=== PATIENT | male | born 1960 | race Caucasian/White ===

== ENCOUNTER → 2016-04-15 | Outpatient (REF) | payer OTHER, BC | LOC: M LAB REF 12:19 | PROVIDERS: ATTEND Otolaryngology | DX: D48.5 Neoplasm of uncertain behavior of skin (principal) ==

== ENCOUNTER 2016-04-26 07:12 | Day surgery (SDC) | payer BC ==
[~2016-04-26] VITALS: Ht 172.7 cm; Wt 88.5 kg
[~2016-04-26 07:12] MED LIST: ALEV220C2 PO
[2016-04-26] MEDS ORDERED: BACITRACIN OINT 30GM As Ordered ONE (09:33)
[2016-04-26] MEDS ORDERED: LIDOCAINE W/EPINEPHRINE 1% 20ML VIAL As Ordered ONE (09:33)
[2016-04-26] MEDS ORDERED: fentaNYL 250 MCG/5 ML INJECTION (J3010) As Ordered ONE (10:23)
[2016-04-26] MEDS ORDERED: MIDAZOLAM INJ 2 MG/2 ML VIAL (J2250) As Ordered ONE (10:24)
[2016-04-26] MEDS ORDERED: SUCCINYLCHOLINE 100 MG/5 ML SYRINGE (J0330) As Ordered ONE (10:24)
[2016-04-26] MEDS ORDERED: LIDOCAINE 2% INJ 100 MG/5 ML SDV (FOR ANES.) As Ordered ONE (10:24)
[2016-04-26] MEDS ORDERED: PROPOFOL 200 MG/20 ML VIAL As Ordered ONE (10:24)
[2016-04-26] MEDS ORDERED: ROCURONIUM BROMIDE 50 MG/5 ML VIAL As Ordered ONE (10:26)
[2016-04-26] MEDS ORDERED: METHYLENE BLUE 1% 10 ML VIAL (Q9968) As Ordered ONE (10:50)
[2016-04-26] MEDS ORDERED: CIPRODEX OTIC SUSP 7.5ML As Ordered ONE (10:50)
[2016-04-26] MEDS ORDERED: EPINEPHrine 1MG/ML INJ 30ML MD-VIAL As Ordered ONE (10:50)
[2016-04-26] MEDS ORDERED: ePHEDrine SULFATE 25 MG/5 ML(5MG/ML) SYRINGE As Ordered ONE ×2 (11:13→14:45)
[2016-04-26] MEDS ORDERED: LIDOCAINE W/EPINEPHRINE 1% 20ML VIAL SC ONE (11:36)
[2016-04-26] MEDS ORDERED: HYDROmorphone HCL 2 MG/ML 1ML VIAL (J1170) As Ordered ONE (11:57)
[2016-04-26] MEDS ORDERED: hydrALAZINE INJ 20 MG/ML VIAL As Ordered ONE (13:20)
[2016-04-26] MEDS: CIPRODEX OTIC SUSP 7.5ML AU ONE ×2 (13:41→13:43)
[2016-04-26] MEDS ORDERED: CIPRODEX OTIC SUSP 7.5ML AD ONE (14:23)
[2016-04-26] MEDS ORDERED: REMIFENTANIL 1MG 3ML VIAL As Ordered ONE (14:48)
[2016-04-26] MEDS ORDERED: PHENYLephrine HCL 500 MCG/5 ML (100MCG/ML) SYRINGE (J2370) As Ordered ONE (14:59)
[2016-04-26] MEDS ORDERED: ONDANSETRON 4MG/2ML VIAL (J2405) As Ordered ONE (15:03)
[2016-04-26] MEDS ORDERED: dexameTHASONE 4 MG/ML 1ML VIAL (J1100) As Ordered ONE (15:03)
[2016-04-26] MEDS ORDERED: BACITRACIN OINT 30GM TOP ONE (15:19)
[2016-04-26] MEDS ORDERED: LR 1,000 ML IV SCH ×2 (16:15→16:30)
[2016-04-26] MEDS ORDERED: MORPHINE 2 MG/ML 1ML SYRINGE IV PRN (16:15)
[2016-04-26] MEDS ORDERED: METOCLOPRAMIDE INJ 10MG/2ML VIAL (J2765) IV PRN (16:15)
[2016-04-26] MEDS ORDERED: ONDANSETRON 4MG/2ML VIAL (J2405) IV PRN (16:15)
[2016-04-26] MEDS ORDERED: PERCOCET 5MG/325MG TAB As Ordered ONE ×2 (16:34→16:49)
[2016-04-26] MEDS ORDERED: MORPHINE 10 MG/ML 1ML VIAL As Ordered ONE (16:34)
[2016-04-26] MEDS: PERCOCET 5MG/325MG TAB PO PRN ×2 (16:37→16:57)
[2016-04-26] MEDS: MORPHINE 2 MG/ML 1ML SYRINGE IV PRN ×5 (16:39→17:00)
[2016-04-26] MEDS ORDERED: fentaNYL 100 MCG/2 ML INJECTION (J3010) As Ordered ONE (17:39)
[2016-04-26] MEDS: fentaNYL 100 MCG/2 ML INJECTION (J3010) IV PRN ×4 (17:40→18:05)
[2016-04-26 20:24] VITALS: BP 124/69
[2016-04-26] MEDS: MORPHINE 10 MG/ML 1ML VIAL IV PRN (20:47)
[2016-04-26 21:23] VITALS: BP 127/60
--- NOTE | 2016-04-26 22:13 | ECGEPIP ---
Stationary ECG Study [facility] Test Date: 2016-04-26 Pat Name: JENNA AKERS Department: Room: - Gender: M [employer]: : 1960 Requested By: Rafa Munguia Order Number: [id number] Reading MD: Joshua Nicole Measurements Intervals [place] Rate: 56 P: 35 IA: 182 QRS: 12 QRSD: 101 T: 31 QT: 380 QTc: 369 Interpretive Statements Sinus bradycardia ST elevation in first complex in V2--may be artifactual--with nonspecific ST-T wave abnormalities elsewhere Comparison tracing not on file Electronically Signed On 04-26-2016 22:13:36 EST by Joshua Nicole
[2016-04-26 22:25] VITALS: BP 116/71
[2016-04-26 23:30] VITALS: BP 153/77
[2016-04-27] VITALS (10 sets, daily range): BP systolic 108–125; BP diastolic 61–68; O2SAT 91–96
[2016-04-27] MEDS: MORPHINE 10 MG/ML 1ML VIAL IV PRN ×4 (00:57→13:58)
[2016-04-27] MEDS: ACETAMINOPH W/CODEINE #3 TAB UD PO PRN ×3 (03:06→12:26)
--- NOTE | 2016-04-27 06:06 | RO ---
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 PROCEDURE: Excision skin cancer right ear by total external ear removal and right parotidectomy and right supraomohyoid neck dissection and right cervical facial flap. SURGEON: Dr. Faraz Das. BIBLICAL LANGUAGES PROFESSOR: Dr. Hodges and Hector Fisher. ANESTHESIA: ESTIMATED BLOOD LOSS: FINDINGS: There is skin cancer involving the upper part of the ear extending into the ear canal. I resected the tumor with the ear and the defect measured 6 x 8 cm. Cervical facial flap was elevated which was 12 x 20 cm going from the facial region down to the clavicle from the posterior aspect all the way just over the midline. So the total elevated cervical facial flap was 240 cm2. Patient was intubated. A nerve monitor device was used during the procedure. The incisions were mapped out. I started first by making an incision in the inferior part of the ear down into the neck. Once this was done, then I dissected the tissues off of the face and onto the neck anteriorly. Once that was done, then I controlled bleeding with cautery. I used Harmonic scalpel during the procedure. I used bipolar cautery. I then dissected down, identified the right facial nerve. I followed that a short distance. Then I went down to the neck. I went anterior to the sternocleidomastoid muscle. I went down and dissected down to the internal jugular vein. I identified the spinal accessory nerve. I then went anterior to the internal jugular vein and identifying the common carotid artery. I then went inferior, identified the Omohyoid muscle. Then I went superior to this and dissected in this tissue plane. I dissected all the way up to the midline submental area. I dissected then the inferior border of the submandibular gland. I then dissected the tissue off the submandibular gland. I then dissected around the submandibular gland dividing the vessels with Harmonic scalpel. I went from anterior to posterior and went through the tail of the parotid and then resected this portion as the suprahyoid neck dissection specimen. That was marked. Then I went back to the facial nerve and followed the branch frontal ophthalmic. I followed it superiorly and then used this as a guide. Divided the skin and then the parotid. So the parotid tissue was kept with the specimen. I preserved the facial nerve in this dissection. Once this was done, then I made an incision around superiorly leaving at least 1 cm margin. I went down to the temporal bone and then joined these two dissections. Then using the microscope, I went in the ear and made an incision in the bony part of the canal with the house knife. Once this was done, then I made an incision posterior to the ear and went down the mastoid bone. I then elevated the periosteum into the ear canal and then removed the tissue from the canal. The other skin was removed from the external auditory canal from the bony segment laterally. Then I went through the soft tissues anteriorly and joined the dissection. It was apparent that all of the tumor had been resected. Everything looked very good. Bleeding was controlled with bipolar cautery or cautery. Some vessels I did tie off with #0 Vicryl. Once this was done, then I mobilized skin in the frontal area around the eye, superiorly around the parietal area and then posterior in the occipital area. In addition, I elevated the cervical facial flap all the way to the midline around the nose and the lips and then down into the neck. Bleeding was controlled with cautery. Once that was done then, I was able to rotate the cervical facial flap superiorly into place. I sutured it in with #3-0 Vicryl and then #3-0 Prolene suture. I made a stellate incision at the area where the external auditory canal was and put some iodoform gauze in the canal. Then I put in a Levy-Lee drain, one superiorly and one inferiorly and sutured those in. Once this was done, then everything looked good. The wound was cleaned and dressed. I put antibiotic ointment on the incision. A dressing was applied. Patient tolerated the procedure well and was extubated and transferred to the recovery room in excellent condition. Total estimated blood loss 100 mL. ADDENDUM: The size of the resection was 8 x 6 cm and the size of the flap elevation was 12 x 20 cm or 240 square cm reconstruction.
[2016-04-27] MEDS ORDERED: SLF 3 ML SYR IV PRN (11:45)
[2016-04-27] MEDS ORDERED: SLF 3 ML SYR IV SCH (14:00)
[2016-04-27] MEDS ORDERED: ACET30TAB PO (15:44)
== END 2016-04-27 17:08 | disposition home or self-care (01) ==
LOC: M SDC 07:12 → M PCU 18:32 → M SDC 04-27 17:08
PROVIDERS: ATTEND Otolaryngology
DX: C44.202 Unspecified malignant neoplasm of skin of right ear and external auricular canal (principal); G89.29 Other chronic pain; Z91.040 Latex allergy status; Z72.0 Tobacco use
CPT/HCPCS: 14041; 14302; 38700; 42420; 88307; 93005; 96372; 96375; 96376; J0330; J1100; J1170; J2250; J2370; J2405; J3010